=== PATIENT | female | born 1985 | race Caucasian/White ===

== ENCOUNTER 2023-04-19 18:29 | Emergency (ER) | payer SELFPAY ==
[~2023-04-19] VITALS: Ht 162.6 cm; Wt 97.1 kg
[2023-04-19 18:45] VITALS: BP 122/80; PULSE 80; RESP 20; TEMP 98; O2SAT 100
--- NOTE | 2023-04-19 19:26 | NUR ---
SEEN AND EXAMINED BY SAIDA COONEY
[2023-04-19 19:30] VITALS: BP 122/80; PULSE 80; RESP 17; TEMP 98; O2SAT 100
[2023-04-19] MEDS ORDERED: IBUP-2213 PO (19:45)
== END 2023-04-19 19:26 | disposition home or self-care (01) ==
LOC: MED 18:29
DX: S93.692A Other sprain of left foot, initial encounter (principal); X58.XXXA Exposure to other specified factors, initial encounter; Y93.89 Activity, other specified; Y92.89 Other specified places as the place of occurrence of the external cause; Y99.8 Other external cause status
CPT/HCPCS: 29515; 73630; 99283